=== PATIENT | male | born 1965 | race Caucasian/White ===

== ENCOUNTER 2024-03-11 02:28 | Inpatient (IN) ==
[2024-03-11 02:57] LABS: Hematocrit 55.4 % (38-53); Hemoglobin 18.8 g/dL (13.2-16.3); Mean Corpuscular Hemoglobin 31.8 pg (27-33); Mean Corpuscular Volume 93.6 fL (80-97); Mean Platelet Volume 8.5 fL (7.5-11.2); Platelet Count 260 10^3/uL (150-450); Red Blood Count 5.92 10^6/uL (4.06-5.63); Red Cell Distribution Width 13.9 % (12-17); White Blood Count 21.2 10^3/uL (3.6-10.2)
[2024-03-11] MEDS: Heparin DRIP 25,000 UNITS BAG 25,000 UNITS/250 ML BAG IV SCH (02:58)
[2024-03-11 03:33] LABS: INR 0.94 (0.85-1.14)
[2024-03-11 03:34] LABS: Albumin 3.7 g/dL (3.5-5.7); Albumin/Globulin Ratio 1.4 (1-3); Calcium 8.8 mg/dL (8.6-10.3); Creatinine, Serum 0.84 mg/dL (0.67-1.17); Globulin 2.7 g/dL (2-4); Potassium 4.7 mmol/L (3.5-5.0); Total Bilirubin 0.4 mg/dL (0.2-1.0); Total Protein 6.4 g/dL (6.4-8.9); eGFR CKD-EPI 101.1 (>60)
[2024-03-11 03:40] LABS: Activated Partial Thrombo Time 146.3 seconds (26.0-38.0)
[2024-03-11 03:54] LABS: ABS Lymphocytes 1.1 10^3/uL (1.0-4.8); ABS Monocytes 0.6 10^3/uL (0.0-1.1); ABS Neutrophils 19.5 10^3/uL (1.5-7.6); ABS Nucleated RBC 0.02 10^3/ul; Lymphocyte % 5.1 %; Nucleated Red Blood Cells % 0.1 %/100WBC (0.0-0.8)
[2024-03-11 04:18] LABS: High Sensitivity Troponin 1 Hr 1981 pg/mL (<20)
[2024-03-11] MEDS ORDERED: Nitroglycerin 0.3 mg TAB SL PRN (04:20)
[2024-03-11] MEDS ORDERED: Dextrose 50% Syringe 50 ml 25 GM/50 ML SYRINGE IV PUSH PRN (04:57)
[2024-03-11] MEDS: Iohexol 350 (CONTRAST) 500 ML MDV IV ONE (05:23)
[2024-03-11 05:36] LABS: Magnesium 2.2 mg/dL (1.9-2.7)
[2024-03-11] MEDS: Lactated Ringers 1000 ml BAG 1,000 ML IV SCH (06:00)
[2024-03-11] MEDS: Sulfur Hexaflouride MICROSPHR 25 MG VIAL IV PRN (08:51)
[2024-03-11 09:01] LABS: ABS Lymphocytes 1.2 10^3/uL (1.0-4.8); ABS Monocytes 0.7 10^3/uL (0.0-1.1); ABS Neutrophils 17.7 10^3/uL (1.5-7.6); ABS Nucleated RBC 0.01 10^3/ul; Eosinophil % 0.1 %; Hematocrit 51.8 % (38-53); Hemoglobin 17.8 g/dL (13.2-16.3); Lymphocyte % 6.2 %; Mean Corpuscular Hgb Conc 34.4 g/dL (31-36); Mean Corpuscular Volume 93.1 fL (80-97); Mean Platelet Volume 8.4 fL (7.5-11.2); Platelet Count 238 10^3/uL (150-450); Red Blood Count 5.56 10^6/uL (4.06-5.63); Red Cell Distribution Width 14.2 % (12-17); White Blood Count 19.6 10^3/uL (3.6-10.2)
[2024-03-11 09:24] LABS: HDL Cholesterol 46.2 mg/dL
[2024-03-11 10:06] LABS: Ferritin 98.5 ng/mL (24-336)
[2024-03-11] MEDS: Insulin GLARGINE 100 un/ml 10 ml VIAL SUBCUT SCH (10:06)
[2024-03-11] MEDS ORDERED: Albuterol/Ipratropium NEB.SOL (2.5/0.5 MG) 3 ML NEB.SOLN INH PRN (10:37)
[2024-03-11] MEDS: cefTRIAXone 1 gm/50 mL D5W 1 GM/50 ML BAG IV SCH (11:32)
[2024-03-11] MEDS: Insulin GLARGINE 100 un/ml 10 ml VIAL SUBCUT ONE (11:32)
[2024-03-11] MEDS: Azithromycin 500 mg/250 ml NS 500 MG/250 ML BAG IVPB SCH (12:36)
[2024-03-11 14:43] LABS: Glucose Confirmatory 496 mg/dL (70-100)
[2024-03-11 14:56] LABS: Calcium 9.2 mg/dL (8.6-10.3); Creatinine, Serum 0.87 mg/dL (0.67-1.17); Potassium 4.6 mmol/L (3.5-5.0)
[2024-03-11] MEDS: Heparin 5000 UNITS/ML 1 mL VIAL IV SCH (18:29)
[2024-03-12 06:34] LABS: Hematocrit 45.9 % (38-53); Hemoglobin 15.9 g/dL (13.2-16.3); Mean Corpuscular Hemoglobin 32.2 pg (27-33); Mean Corpuscular Hgb Conc 34.5 g/dL (31-36); Mean Corpuscular Volume 93.1 fL (80-97); Mean Platelet Volume 8.6 fL (7.5-11.2); Platelet Count 230 10^3/uL (150-450); Red Blood Count 4.93 10^6/uL (4.06-5.63); Red Cell Distribution Width 14.3 % (12-17); White Blood Count 15.4 10^3/uL (3.6-10.2)
[2024-03-12 07:58] LABS: Potassium 3.8 mmol/L (3.5-5.0)
[2024-03-12 07:59] LABS: Calcium 8.9 mg/dL (8.6-10.3); Creatinine, Serum 0.81 mg/dL (0.67-1.17); Magnesium 1.9 mg/dL (1.9-2.7); eGFR CKD-EPI 102.2 (>60)
[2024-03-12] MEDS ORDERED: Dextrose 50% Syringe 50 ml 25 GM/50 ML SYRINGE IV PUSH PRN (10:44)
[2024-03-12] MEDS: cefTRIAXone 1 gm/50 mL D5W 1 GM/50 ML BAG IV SCH (11:01)
[2024-03-12] MEDS: Azithromycin 500 mg/250 ml NS 500 MG/250 ML BAG IVPB SCH (11:53)
[2024-03-12] MEDS: Insulin GLARGINE 100 un/ml 10 ml VIAL SUBCUT SCH (12:29)
[2024-03-12] MEDS: Silver Sulfadiazine 1% 20 gm TUBE TOPICAL ONE (16:38)
[2024-03-13 04:30] LABS: Hematocrit 44.6 % (38-53); Hemoglobin 15.2 g/dL (13.2-16.3); Mean Corpuscular Hemoglobin 31.7 pg (27-33); Mean Corpuscular Volume 93.2 fL (80-97); Mean Platelet Volume 8.2 fL (7.5-11.2); Platelet Count 223 10^3/uL (150-450); Red Blood Count 4.79 10^6/uL (4.06-5.63); White Blood Count 12.3 10^3/uL (3.6-10.2)
[2024-03-13 05:48] LABS: Calcium 8.6 mg/dL (8.6-10.3); Creatinine, Serum 0.76 mg/dL (0.67-1.17); Magnesium 1.7 mg/dL (1.9-2.7); Potassium 3.9 mmol/L (3.5-5.0); eGFR CKD-EPI 104.2 (>60)
[2024-03-13] MEDS: Magnesium Sulf 4 GM/100 ML IV 4,000 MG/100 ML BAG IVPB ONE (08:47)
[2024-03-13] MEDS: KCL 20 MEQ/100 ML IVPREMIX 20 MEQ/100 ML BAG IV ONE (08:47)
[2024-03-13 10:43] VITALS: BP 102/78
== END 2024-03-13 14:35 | disposition home or self-care (01) | DRG 280 ==
LOC: EDHOLD 02:28 → ED 02:28 → OBSVTOIN 02:59 → SUATTDRO 02:59 → MEDTELE 16:16
PROVIDERS: ADMIT Student in an Organized Health Care Education/Training Program; ATTEND Internal Medicine